=== PATIENT | female | born 1950 | race Caucasian/White ===

== ENCOUNTER 2019-02-20 18:41 | Emergency (ER) | payer OTHER ==
[~2019-02-20] VITALS: Ht 157.5 cm; Wt 76.7 kg
[2019-02-20] MEDS ORDERED: SYNTHROID50 MCG (18:57)
[2019-02-20] MEDS ORDERED: LOTREL 10-20 M1 EACH (18:58)
[2019-02-20] MEDS ORDERED: MELATONIN1 MG/1 ML (18:58)
[2019-02-20] MEDS ORDERED: NEURONTIN800 MG (18:58)
[2019-02-20] MEDS ORDERED: CRESTOR5 MG (18:58)
== END 2019-02-20 20:58 | disposition home or self-care (01) ==
LOC: ER 18:41
DX: R42 Dizziness and giddiness (principal)

== ENCOUNTER → 2020-12-01 08:00 | Outpatient (CLI) | payer OTHER ==
[~2020-12-01 08:00] MED LIST: CRESTOR5 MG; LOTREL 10-20 M1 EACH; MELATONIN1 MG/1 ML; NEURONTIN800 MG; SYNTHROID50 MCG
== END | disposition home or self-care (01) ==
LOC: LAB 08:00 → ADM 12:45 → AMB-ENDOS 12-08 12:45 → EDSTATUS 12-08 12:45
PROVIDERS: ATTEND Colon & Rectal Surgery
DX: K57.32 Diverticulitis of large intestine without perforation or abscess without bleeding (principal); K64.2 Third degree hemorrhoids; K92.1 Melena; Z20.822 Contact with and (suspected) exposure to COVID-19

== ENCOUNTER → 2021-01-29 14:46 | Outpatient (CLI) | payer OTHER | END | disposition home or self-care (01) | LOC: LAB 14:46 | PROVIDERS: ATTEND Internal Medicine Hematology & Oncology | DX: R63.4 Abnormal weight loss (principal); D51.3 Other dietary vitamin B12 deficiency anemia; R10.30 Lower abdominal pain, unspecified; I10 Essential (primary) hypertension; E11.8 Type 2 diabetes mellitus with unspecified complications; E78.2 Mixed hyperlipidemia; E03.8 Other specified hypothyroidism; R97.8 Other abnormal tumor markers; R97.1 Elevated cancer antigen 125 [CA 125]; C56.9 Malignant neoplasm of unspecified ovary; C25.7 Malignant neoplasm of other parts of pancreas; C50.919 Malignant neoplasm of unspecified site of unspecified female breast; E06.3 Autoimmune thyroiditis; R97.0 Elevated carcinoembryonic antigen [CEA]; D51.1 Vitamin B12 deficiency anemia due to selective vitamin B12 malabsorption with proteinuria ==

== ENCOUNTER 2021-02-09 07:11 | Outpatient (CLI) | payer OTHER | END 2021-02-09 07:49 | disposition home or self-care (01) | LOC: TOM 07:11 | PROVIDERS: ATTEND Internal Medicine Hematology & Oncology | DX: D51.3 Other dietary vitamin B12 deficiency anemia (principal); R63.4 Abnormal weight loss; R10.30 Lower abdominal pain, unspecified; I10 Essential (primary) hypertension; E11.9 Type 2 diabetes mellitus without complications; E78.2 Mixed hyperlipidemia; E03.8 Other specified hypothyroidism | CPT/HCPCS: 71260; 74174; Q9965 ==

== ENCOUNTER 2021-03-16 05:44 | Day surgery (SDC) | payer OTHER | END 2021-03-16 10:50 | disposition home or self-care (01) | LOC: AMB-ENDOS 05:44 | PROVIDERS: ATTEND Colon & Rectal Surgery | DX: K62.89 Other specified diseases of anus and rectum (principal); K64.0 First degree hemorrhoids; Z20.822 Contact with and (suspected) exposure to COVID-19 ==